=== PATIENT | male | born 1975 | race Caucasian/White ===

== ENCOUNTER 2018-06-20 07:18 | Day surgery (SDC) | payer OTHER ==
[2018-06-20] MEDS ORDERED: ROCURONIUM BROMIDE 50 MG/5 ML VIAL As Ordered (08:02)
[2018-06-20] MEDS ORDERED: LIDOCAINE 2% INJ 100 MG/5 ML SDV (FOR ANES.) As Ordered (08:02)
[2018-06-20] MEDS ORDERED: PROPOFOL 200 MG/20 ML VIAL As Ordered (08:02)
[2018-06-20] MEDS ORDERED: fentaNYL 250 MCG/5 ML INJECTION (J3010) As Ordered (08:02)
[2018-06-20] MEDS ORDERED: MIDAZOLAM INJ 2 MG/2 ML VIAL (J2250) As Ordered (08:03)
[2018-06-20] MEDS ORDERED: OXYMETAZOLINE NASAL SPRAY (AFRIN) As Ordered (08:07)
[2018-06-20] MEDS ORDERED: UNASYN 1.5 GM VIAL As Ordered (08:20)
[2018-06-20] MEDS: UNASYN 3 GM VIAL IV (08:48)
[2018-06-20] MEDS: LIDOCAINE 2% W/ EPINEPHRINE 1.7 ML DENTAL INJ As Ordered ×2 (09:05→09:09)
[2018-06-20] MEDS: CHLORHEXIDINE GLUCONATE 0.12 % 15ML UDC (PERIDEX ORAL RINSE) As Ordered ×2 (09:08→09:09)
[2018-06-20] MEDS ORDERED: PHENYLephrine HCL 500 MCG/5 ML (100MCG/ML) SYRINGE (J2370) As Ordered (09:12)
[2018-06-20] MEDS ORDERED: ESMOLOL INJ 100MG/10ML VIAL As Ordered (09:12)
[2018-06-20] MEDS ORDERED: ONDANSETRON 4MG/2ML VIAL (J2405) As Ordered (09:13)
[2018-06-20] MEDS ORDERED: GLYCOPYRROLATE INJ 0.2 MG/ML 2 ML VIAL As Ordered (09:13)
[2018-06-20] MEDS ORDERED: NEOSTIGMINE 10 MG/10 ML VIAL (J2710) As Ordered (09:13)
[2018-06-20] MEDS ORDERED: KETOROLAC 60 MG/2 ML VIAL (J1885) As Ordered (09:13)
[2018-06-20] MEDS ORDERED: METOCLOPRAMIDE INJ 10MG/2ML VIAL (J2765) As Ordered (09:13)
[2018-06-20] MEDS ORDERED: HYDROmorphone HCL 2 MG/ML 1ML VIAL (J1170) As Ordered (09:36)
[2018-06-20] MEDS ORDERED: CHLORHEXIDINE GLUCONATE 0.12 % 15ML UDC (PERIDEX ORAL RINSE) As Ordered (10:40)
[2018-06-20] MEDS ORDERED: fentaNYL 100 MCG/2 ML INJECTION (J3010) As Ordered (11:10)
[2018-06-20 11:16] LABS: BEDSIDE GLUCOSE 209 MG/DL (70-105)
[2018-06-20 11:20] LABS: BEDSIDE GLUCOSE 237 MG/DL (70-105)
[2018-06-20] MEDS ORDERED: HumaLOG INSULIN (NovoLOG) PER UNIT As Ordered (11:29)
[2018-06-20] MEDS: HumaLOG INSULIN (NovoLOG) PER UNIT SC (11:30)
[2018-06-20] MEDS ORDERED: HYDROMORPHONE HCL 0.5 MG/ 0.5 ML SYRINGE (J1170 PER 1) IV (11:30)
[2018-06-20] MEDS ORDERED: ONDANSETRON 4MG/2ML VIAL (J2405) IV (11:30)
[2018-06-20] MEDS: LR 1,000 ML IV (11:30)
[2018-06-20] MEDS ORDERED: NORCO, ANEXSIA 5/325MG TABLET (HYDROcodone/ACETAMINOPHEN) PO (11:30)
[2018-06-20] MEDS: fentaNYL 100 MCG/2 ML INJECTION (J3010) IV ×2 (12:00→12:05)
== END 2018-06-20 14:45 | disposition home or self-care (01) ==
LOC: M SDC 07:18 → M MS5PR 07:45 → M SDC 14:45
DX: K02.9 Dental caries, unspecified (principal); M27.8 Other specified diseases of jaws; C09.9 Malignant neoplasm of tonsil, unspecified; I10 Essential (primary) hypertension; E78.5 Hyperlipidemia, unspecified; E11.9 Type 2 diabetes mellitus without complications; Z87.891 Personal history of nicotine dependence; Z79.84 Long term (current) use of oral hypoglycemic drugs; Z79.899 Other long term (current) drug therapy
CPT/HCPCS: D7210

== ENCOUNTER → 2021-07-12 | Outpatient (CLI) | payer MEDICARE, MEDICAID ==
[~2021-07-12] MED LIST: AMOX250C3 PO; HYDR-3713 PO; PERI0.126 PO
--- NOTE | 2021-07-12 16:06 | RADENCPD ---
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 Presented originally in 2018 with [id number] left tonsil SCC p16+ stage I. He under went chemoradiation 70 Gy in 35 fractions completed 06/08/18-08/26/18. He suffered recurrence and underwent proton reirradiation @ [facility] c/b left CN II/III/IV/V/VII toxicity (vs PNI?). He then suffered an isolated mediastinal recurrence in 2019 and completed 60 Gy in 30 fractions 08/18/20. He remained on keytruda with no further bodily recurrences as of last PET-CT 05/10/21. He did complain of CONTE and was found on 06/04/21 MRI to have 2 metastatic lesions, 3.5 cm lesion in the left anterior temporal lobe, and a 2.2 cm left cerebellar lesion. He is currently receiving WBRT 30 Gy in 10 fractions with plan to complete on 07/18/21. Recent data: 06/28/21 MRI brain Left anterior temporal lesion 2.0 x 3.5 x 2.4 cm Left cerebellar lesion 1.5 x 1.7 x 1.2 cm Subjective: Tolerating WBRT, plan to complete 07/18/21. No CONTE presently. CN deficits are chronic and date from 2019 recurrence. Mother, Mandi is HCP. Objective: Speech fluent, oriented. Assessment: Limited brain metastases s/p WBRT. Given the size and chronicity of the lesions, he would benefit from SRS boost to augment LC. Plan: Discussed the benefit of SRS boost over WBRT alone in patients with limited metastases in terms of intracranial control. 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 I will attempt to obtain records from his proton treatment in 2019 in order to better understand why he has the CN deficits, and to incorporate prior doses in our current planning. For his simulation we will proceed the week of 07/30/21, for this he will need an updated MRI which we can obtain same day. For treatment I will opt for single fraction SRS 16 Gy to both lesions. This is in line with the paradigm established by RTOG 9005 and 9508 for the lesion sizes described. We discussed the risk of symptomatic necrosis as a result of treatment. Imtiaz agreed to proceed. 15 minutes spent in direct medical discussion with the patient ESME RAGSDALE MD Jul 12, 2021 16:06
== END ==
LOC: M ONCR 14:02
PROVIDERS: ATTEND General Practice
DX: C79.31 Secondary malignant neoplasm of brain (principal); C09.9 Malignant neoplasm of tonsil, unspecified; Z92.3 Personal history of irradiation

== ENCOUNTER 2021-08-06 07:15 | Outpatient (RCR) | payer MEDICARE, MEDICAID ==
[~2021-08-06 07:15] MED LIST changes: -PROHANCE 279.3MG/ML 15ML VIAL As Ordered ONE; -PROHANCE 279.3MG/ML 5ML VIAL As Ordered ONE
== END 2021-08-13 ==
LOC: M ONCR 07:15
PROVIDERS: ATTEND General Practice
DX: C79.31 Secondary malignant neoplasm of brain (principal)

== ENCOUNTER → 2021-08-06 | Outpatient (CLI) | payer MEDICARE, MEDICAID ==
[~2021-08-06] MED LIST changes: +PROHANCE 279.3MG/ML 15ML VIAL As Ordered ONE; +PROHANCE 279.3MG/ML 5ML VIAL As Ordered ONE
== END ==
LOC: M RAD 13:28
PROVIDERS: ATTEND General Practice
DX: C79.31 Secondary malignant neoplasm of brain (principal); G93.6 Cerebral edema
CPT/HCPCS: 70553; A9576

== ENCOUNTER 2021-08-14 12:33 | Outpatient (RCR) | payer MEDICARE, MEDICAID | END 2021-09-10 | LOC: M ONCR 12:33 | PROVIDERS: ATTEND General Practice | DX: C79.31 Secondary malignant neoplasm of brain (principal) ==

== ENCOUNTER → 2021-12-18 | Outpatient (POV) | payer MEDICARE ==
[~2021-12-18] VITALS: Ht 182.9 cm; Wt 95.4 kg
[~2021-12-18] MED LIST changes: +AMOX500T2 PO; +ATOR1TAB21 PO; +BASA100I SC; +DEXA4TA PO; +FAMO20TA PO; +JARD1TAB PO; +LISI20TA33 PO; +METF10004 PO; +PROC10TA5 PO; +SYNT50TA PO; +ZALE5CA PO
[2021-12-18 15:20] VITALS: BP 113/78
== END ==
LOC: M IRPOV 14:51
PROVIDERS: ATTEND Radiology Diagnostic Radiology
DX: C76.0 Malignant neoplasm of head, face and neck (principal); C79.31 Secondary malignant neoplasm of brain; I26.99 Other pulmonary embolism without acute cor pulmonale; I25.2 Old myocardial infarction; Z79.84 Long term (current) use of oral hypoglycemic drugs; Z79.899 Other long term (current) drug therapy
CPT/HCPCS: 87426; G0463

== ENCOUNTER → 2021-12-20 | Outpatient (CLI) | payer MEDICARE ==
[~2021-12-20] MED LIST changes: +ISOVUE-300 61% 50ML VIAL As Ordered ONE; +LIDOCAINE 1% MDV 20ML VIAL As Ordered ONE; +MIDAZOLAM INJ 2MG/2ML VIAL (J2250 PER 1MG) As Ordered ONE; +NS 1,000 ML IV SCH; +diphenhydrAMINE 50MG/ML VIAL (J1200) As Ordered ONE; +fentaNYL 100 MCG/2 ML INJECTION As Ordered ONE
[2021-12-20 11:30] VITALS: BP 115/73
== END ==
LOC: M IRPRO 07:54
PROVIDERS: ATTEND Radiology Diagnostic Radiology
DX: I26.99 Other pulmonary embolism without acute cor pulmonale (principal); C76.0 Malignant neoplasm of head, face and neck
CPT/HCPCS: 37191; 99152; 99153; C1769; C1880; C1894; J1644; Q9967